=== PATIENT | female | born 1985 | race Caucasian/White ===

== ENCOUNTER 2023-10-31 09:42 | Outpatient (CLI) | payer BC, SELFPAY ==
[2023-10-31 11:57] LABS: Thyroid Stimulating Hormone 2.43 uIU/mL (0.465-4.68)
== END 2023-10-31 23:59 ==
LOC: LAB 09:43
PROVIDERS: PCP Pediatrics; Visit Provider Obstetrics & Gynecology
DX: N93.9 Abnormal uterine and vaginal bleeding, unspecified (principal)
CPT/HCPCS: 36415; 84443

== ENCOUNTER 2024-02-02 15:02 | Outpatient (CLI) | payer BC, SELFPAY ==
--- NOTE | 2024-02-02 15:03 | US_ITS ---
PROCEDURE: US TRANSVAGINAL CLINICAL INDICATION: AUB COMPARISON: No exams were available for comparison FINDINGS: Transvaginal sonographic images of the pelvis were obtained. UTERUS: 7.5 cm x 5.0 cmx 4.5 cm anteverted with a combined endometrial thickness of 5.7mm. There is a posterior submucosal fibroid measuring 1.7 cm x 1.4 cm x 2.0 cm. LEFT OVARY: 2.5 cm x1.5 cmx1.9cm with a volume of 3.7ml. There are several small follicles. RIGHT OVARY: 1.9 cmx 1.6x1.4 cm with a volume of 2.1ml. There are 2 small follicles. Both ovaries are seen and appear normal. Doppler flow to both ovaries are seen. There is no fluid in the cul-de-sac. IMPRESSION: 1. Anteverted uterus normal in shape and size. The endometrium is thin measuring 5.7 mm. 2. There is a 2.0 cm posterior submucosal fibroid. 3. Both ovaries are seen and appear normal. Each ovary has small follicles. 4. No fluid in the cul-de-sac. Dictated by: Geovani Washington MD 02/04/2024 08:53 Geovani Washington MD in OV 02/04/2024 09:02
== END 2024-02-02 23:59 | disposition home or self-care (01) ==
LOC: RAD 15:03
PROVIDERS: PCP Pediatrics; Visit Provider Obstetrics & Gynecology
DX: N93.9 Abnormal uterine and vaginal bleeding, unspecified (principal); Z80.41 Family history of malignant neoplasm of ovary; Z80.49 Family history of malignant neoplasm of other genital organs
CPT/HCPCS: 76830

== ENCOUNTER 2024-05-31 08:10 | Outpatient (CLI) | payer BC, SELFPAY ==
[2024-05-31 08:45] LABS: Basophils # 0.1 K/mm3 (0-0.2); Basophils % 1.1 % (0.1-2.0); Eosinophils # 0.3 K/mm3 (0.0-0.4); Eosinophils % 3.3 % (0.1-12.0); Hemoglobin 14.7 g/dL (12.2-16.2); Lymphocytes # 2.4 K/mm3 (0.7-4.5); Lymphocytes % 28.5 % (10-50); Mean Corpuscular Hemoglobin 28.4 pg (27.0-31.2); Mean Corpuscular Volume 81.1 fl (81-99); Mean Platelet Volume 6.9 fl (7.4-10.4); Monocytes # 0.4 K/mm3 (0.1-1.0); Monocytes % 5.1 % (1.7-9.3); Neutrophils # 5.2 K/mm3 (1.8-7.8); Neutrophils % 62.1 % (37.0-80.0); Platelet Count 427 K/mm3 (142-424); Red Blood Count 5.18 M/mm3 (4.20-5.40); Red Cell Distribution Width 13.6 % (11.5-17.5); White Blood Count 8.3 K/mm3 (4.8-10.8)
[2024-05-31 09:07] LABS: Chloride 104 mmol/L (98-107)
[2024-05-31 09:08] LABS: Albumin Level 4.6 g/dl (3.5-5.0); Potassium 4.1 mmoL/L (3.5-5.1); Sodium 137 mmol/L (136-145)
[2024-05-31 09:10] LABS: Blood Urea Nitrogen 9 mg/dl (7-17); Estimated Glomerular Filt Rate 94 ml/min (>60); GFR (African American) 114 ML/MIN (>60)
[2024-05-31 09:11] LABS: Alanine Aminotransferase 29 U/L (12-78); Albumin/Globulin Ratio 1.7 (1.1-1.8); Alkaline Phosphatase 89 U/L (38-126); Anion Gap 12.1 mEq/L (5-15); Aspartate Amino Transferase 26 U/L (14-36); Bilirubin,Total 0.5 mg/dl (0.2-1.3); Calcium 9.7 mg/dl (8.4-10.2); Carbon Dioxide 25 mmol/L (22.0-30.0); Globulin 2.7 g/dL (1.3-3.2); Glucose 115 mg/dl (74-100); Total Protein,Serum 7.3 g/dl (6.3-8.2)
[2024-05-31 09:53] LABS: HCG,Quantitative < 2 mIU/ml (0-5.42)
== END 2024-05-31 23:59 | disposition home or self-care (01) ==
PROVIDERS: PCP Pediatrics; Visit Provider Obstetrics & Gynecology
DX: N93.9 Abnormal uterine and vaginal bleeding, unspecified (principal); Z34.90 Encounter for supervision of normal pregnancy, unspecified, unspecified trimester
CPT/HCPCS: 36415; 80053; 84702; 85025; 86850

== ENCOUNTER 2024-06-01 08:48 | Observation (INO) | payer BC, SELFPAY ==
[2024-05-31 10:03] VITALS: BMI 32.2
[2024-06-01] VITALS (22 sets, daily range): BP systolic 111–156; BP diastolic 55–97; PULSE 76–116; RESP 16–19; TEMP 35.8–36.9; O2SAT 95–100
[2024-06-01] MEDS: CELECOXIB 100MG CAPSULE 400 MG PO (08:13)
[2024-06-01] MEDS: GABAPENTIN 300MG CAPSULE 600 MG (08:13)
[2024-06-01] MEDS: LACTATED RINGERS 1000ML 1,000 ML 25 ML IV (08:13)
[2024-06-01] MEDS: ACETAMINOPHEN 500MG TAB 1000 MG PO ×2 (08:14→20:36)
--- NOTE | 2024-06-01 08:26 | ECG_ITS ---
APPROVED REPORT Exam: Resting ECG HR:93 bpm ECG Measurements Heart Rate 93 AXES OH 149 P 32 QRSd 80 QRS -5 QT 333 T 32 QTc 383 Conclusion SINUS RHYTHM Left axis deviation with poor R wave progression BORDERLINE ECG UNCONFIRMED REPORT Electronically signed by : Elías Teran MD 06/02/2024 10:29:37
--- NOTE | 2024-06-01 08:29 | EXP.ANES.CKL ---
[facility] Disclaimer: The information contained in this section may have been updated after the patient was seen, as this information can be updated by other users. Medical History Mitral regurgitation Family history of uterine cancer mother Family history of ovarian cancer maternal grandmother Abnormal uterine bleeding Surgical History No significant past surgical history Family History Grandmother Cancer ovarian Mother Cancer hysterectomy due to uterine cancer Father Hypertension Diabetes Social History Smoking Status: Never smoker alcohol intake: never substance use type: denies use current occupational status: employed Travel in the last 8 weeks: None [facility] Anesthesia Checklist Patient Identification Patient Identification: Arm Band, Family and Verbal (Name & ) Structural Data Admitted From: Home Planned Operative Procedure/s: TLH, BRIANA Salp, possible JANNETTE, possible Cysto Consent for Planned Operative Procedure(s) Verified: Yes Verified Documents: Surgical Consent and History and Physical NPO Status Verified Time NPO: 19:00 Chart Verification Results Verified: CBC, BMP, ECG and HCG Additional verifications Patient : No Anesthesia Reactions: No Hx Blood Transfusions: No Blood Transfusion Reaction: No Cardiovascular Assessment Heart Sounds: S1 & S2 Pulse Rhythm: Irregular Peripheral Edema: No Airway Assessment Mallampati Score:: Class II C-Spine Mobility Assessed: Yes (FROM demonstrated) TMJ Mobility Assessed: Yes Dentition: Good Dentition (Nothing loose per pt.) Neurological Assessment Level of Consciousness: Awake, Alert, Appropriate (Tearful over procedure) and Follows Commands Hx Seizures: No Numbness or tingling in extremities: No Anesthesia Plan Anesthesia Risk discussed: Yes Anesthesia Plan: Verified ASA Class: II Anesthesia Type: General
--- NOTE | 2024-06-01 09:01 | P.HP_ITS ---
History of Present Illness *Admission Date: 06/01/24 *Reason for visit:: Scheduled surgery *History of present illness: Mrs Birgit Sargent is a 38 yo P3003 who presents to [facility] for scheduled surgery. She complains of of irregular periods with intermenstrual bleeding on combined OCP. She was taking generic RABIA. She tried a few other combined OCPs in the past as well as Mirena IUD. Other OCPs helped initially, the first few months, and then bleeding would return to abnormal. She has family history of ovarian and uterine cancer. Her mother had uterine cancer and maternal grandmother had ovarian cancer. No family history of breast cancer. TSH 10/30/22 within normal limits. She had a pelvic ultrasound a few months ago with previous provider and it was within normal limits. [facility] Disclaimer: The information contained in this section may have been updated after the patient was seen, as this information can be updated by other users. Medical History Mitral regurgitation Family history of uterine cancer mother Family history of ovarian cancer maternal grandmother Abnormal uterine bleeding Surgical History No significant past surgical history Family History Grandmother Cancer ovarian Mother Cancer hysterectomy due to uterine cancer Father Hypertension Diabetes Social History Smoking Status: Never smoker alcohol intake: never substance use type: denies use current occupational status: employed Travel in the last 8 weeks: None Other Medical History Have you received the Pneumonia Vaccine: No Review of Systems Review of Systems Review of systems:: pertinent systems reviewed and negative unless documented below *Genitourinary Genitourinary: Reports abnormal menses and Reports menorrhagia Meds Home Medications and Allergies Home Medications ?Medication ?Instructions ?Recorded ?Confirmed ?Type No Known Home Medications 06/01/24 06/01/24 History New Prescriptions to Start Prescriptions: Allergies Allergy/AdvReac Type Severity Reaction Status Date / Time nitrofurantoin (From Allergy Mild rash Verified 05/31/24 09:53 Macrobid) Exam Data for Last 24 hours Vital signs and Labs for Last 24 Hours: Temp Pulse Resp BP Pulse Ox O2 Del Method 98.5 F 110 H 18 156/85 H 100 Room Air 06/01/24 08:19 06/01/24 08:19 06/01/24 08:19 06/01/24 08:19 06/01/24 08:19 06/01/24 08:19 I & O for Last 24 hours: Intake & Output 05/29/24 05/30/24 05/31/24 06/01/24 23:59 23:59 23:59 23:59 Weight 182 lb Constitutional Constitutional: no acute distress and cooperative *Routine HEENT Exam Head: Present normocephalic and atraumatic Eye: Absent conjunctivae pink ENT: Present mucous membranes moist *Routine Neck Exam Neck: Present full ROM *Routine Respiratory Exam Respiratory: Present CTA bilaterally and normal respiratory effort *Routine Cardiovascular Exam Cardiovascular: Present RRR *Routine Abdominal Exam Abdominal: Present soft and normoactive bowel sounds; Absent tenderness or distended *Routine Rectal Exam Rectal:: deferred *Routine Genitalia Exam Genitalia:: normal female *Routine Extremities Exam Extremities: Present full ROM; Absent edema or calf tenderness *Routine Neurological Exam Neurological: Present alert, moving all extremities and normal speech Routine Psychiatric Exam Psychiatric: Present normal affect and cooperative Assessment and Plan *Assessment and plan (1) Abnormal uterine bleeding: Status: Acute Category: Medical Code(s): N93.9 - Abnormal uterine and vaginal bleeding, unspecified (2) Family history of uterine cancer: Problem Comment: mother Status: Acute Category: Medical Code(s): Z80.49 - Family history of malignant neoplasm of other genital organs (3) Family history of ovarian cancer: Problem Comment: maternal grandmother Status: Acute Category: Medical Code(s): Z80.41 - Family history of malignant neoplasm of ovary (4) Mitral regurgitation: Status: Acute Category: Medical Code(s): I34.0 - Nonrheumatic mitral (valve) insufficiency Plan Cardiac clearance obtained Reviewed risks, benefits, alternatives, expectations and possible complications. All questions addressed and answered. Consent form signed. Proceed with scheduled TLH, BS, possible JANNETTE, BS, possible cystoscopy
[2024-06-01] MEDS: BUPIVACAINE 0.5% W/EPI 1:200,000 30ML VIAL 30 ML IJ (09:53)
[2024-06-01] MEDS: CEFAZOLIN SODIUM 2 GM in 0.9 % SODIUM CHLORIDE 100 ML IV (09:53)
[2024-06-01] MEDS: METRONIDAZ/SOD CHL 500 MG/100 ML PIGGYBACK 100 MG IV ×2 (09:54→18:48)
[2024-06-01] MEDS: 0.9 % SODIUM CHLORIDE 1000ML 1,000 ML 1000 ML IV (09:54)
--- NOTE | 2024-06-01 11:21 | P.PNANES_ITS ---
[facility] Anesthesia Record Part I Anesthesia Record I Intake, IV Amount: 900 Hydration: Adequate Estimated blood loss (mL): 150 Urine output (mL): 100 Blood Products used (#): none Blood Pressure: 153/97 SaO2: 100 Pulse Rate: 107 Airway Patency: Patent Respiratory Rate: 16 Temperature: 96.4 F Patient is:: Awake (Talking) and Stable Stable to PACU at:: 11:20
[2024-06-01] MEDS: MEPERIDINE 25MG/ML 1ML SYRINGE 25 MG IV (11:25)
--- NOTE | 2024-06-01 11:25 | EXP.OP.NOTE ---
Date of procedure: 06/01/24 Pre-op Diagnosis:: 1. Abnormal uterine bleeding 2. Mitral regurgitation Post-op Diagnosis:: 1. Abnormal uterine bleeding 2. Mitral regurgitation Procedure performed:: Total laparoscopic hysterectomy, bilateral salpingectomy Surgeon:: Juliana Weiner DO Roofing Applicator(s):: Geovani Washington MD HELICOPTER OFFICER:: Lelia Suarezbhumi Anesthesia: GETA Estimated blood loss (mL): 150 Clinical Note:: Mrs Birgit Sargent is a 38 yo P3003 who presents to [facility] for scheduled surgery. She complains of of irregular periods with intermenstrual bleeding on combined OCP. She was taking generic RABIA. She tried a few other combined OCPs in the past as well as Mirena IUD. Other OCPs helped initially, the first few months, and then bleeding would return to abnormal. She has family history of ovarian and uterine cancer. Her mother had uterine cancer and maternal grandmother had ovarian cancer. No family history of breast cancer. TSH 10/30/22 within normal limits. She had a pelvic ultrasound a few months ago with previous provider and it was within normal limits. Operative findings:: 1. On bimanual exam, uterus enlarged, normal shape and midposition. No adnexal masses palpated 2. On laparoscopic exam, liver, stomach and bowel grossly normal. Uterus appeared enlarged and boggy. Bilateral fallopian tubes grossly normal. Small right ovarian cyst noted on right ovary. Left ovary grossly normal. No evidence of endometriosis. Operative note:: Discussed risks, benefits, alternatives, expectations and possible complications of surgery. All questions addressed and answered. Patient wished to proceed with surgery. Patient was wheeled back to the operating room and placed under general anesthesia without difficulty. She was placed in the dorsal lithotomy position. She was prepped and draped in normal sterile fashion. Beginning at the vagina, a ellis catheter was inserted into the bladder and draining clear urine prior to the start of the procedure. Weighted Auvuard was placed in the vaginal vault. Anterior lip of the cervix was grasped with single tooth tenaculum. Uterus sounded to 10. Rojelio dilators were used to dilate the cervix. Advincula uterine manipulator was inserted into the cervix with the colpotomy cup covering the cervix. Single tooth tenaculum was removed prior to complete placement of colpotomy cup over cervix. Uterine balloon was filled with 10cc of air. Vaginal balloon was filled with 80 cc of air. Weighted Auvard was removed. Attention was then turned to the abdomen. Skin just below the umbilicus was injected with 0.5% marcaine. A 1.5 cm infraumbilical incision was made. Veress needle was tested and inserted intrabdominally. Opening pressure was 4 mm Hg. The peritoneal cavity was insulflated to 15 mm Hg. An 11 mm blunt trocar was inserted intrabdominally. Obturator was removed and sleeve left in place. Laparoscope was inserted into the trocar sleeve. Abdomen and pelvis was viewed in its entirety. Examination of the peritoneal cavity revealed no signs of injury from entry and normal anatomic structures. See findings above. Pictures were taken. Bowel was swept cephalad with blunt probe. LLQ port site was transilluminated and injected with 0.5% marcaine. A 1.5 cm incision was made and 11 mm trocar was inserted intraabdominally under direct laparoscopic visualization. Obturator was removed and sleeve was left in place. Same procedure was performed in RLQ. Left round ligament was clamped, cauterized and cut with Ligasure Hook. Left fallopian tube was then clamped, cauterized and transected at left cornua. Transection was carried through the Broad ligament. Care was taken to slowly separate the bladder off of the lower uterine segment with sharp and blunt dissection. Same procedure was carried out on the contralateral side. Once the bladder was appropriately dissected off of the lower uterine segment. Bilateral uterine arteries were clamped, cauterized and cut using the Ligasure Hook. Transection was carried through the cardinal ligament bilaterally. Hemostasis was noted. At the level of the colpotomy cup, the vaginal vault was incised circumferentially with the Ligasure monopolar hook. The uterus and cervix was pulled into the vagina and left in the vagina to hold pneumoperitoneum. The vaginal vault was closed with the Endostitch V-Lock barbed stitch. Pelvis was irrigated. Hemostasis was noted. Left fallopian tube was grasped at fimbriated end. Ligasure Hook was used to clamp, cauterize and transect the left mesosalpinx, mesovarium. Left fallopian tube removed from the body and off of the sterile field to be sent to pathology for review. Same procedure was carried out on the contralateral side. Both ovaries left in situ. Surgicel powder was applied over bilateral pedicles and closed vaginal vault. RLQ and LLQ trocars were removed under direct laparoscopic visualization. Pneumoperitoneum was released into the atmosphere. Infraumbilical trocar was removed under direct laparoscopic visualization to ensure no herniation of bowel or omentum. Skin incisions were reapproximated with 3-0 Vicryl. Dermabond was applied over closed skin incisions. Attention was turned to the vagina. Specimen was removed from the vagina and handed off of the sterile field. Catheter was removed from the bladder. Patient was awakened from anesthesia and taken to recovery in stable condition. Condition: stable Disposition: floor Specimens:: 1. Uterus, cervix 2. Bilateral fallopian tubes Complications:: None
--- NOTE | 2024-06-01 12:07 | P.PNANES_ITS ---
[facility] Anesthesia Record Part II Anesthesia Record Part II Discharge Time: 11:45 Destination: Medical Surgical Department PACU nurse assessment reviewed?: Yes Patient Condition:: Good Anesthesia Complications:: None Swallowing reflex intact?: Yes Airway Patency: Patent Cyanosis?: No Blood Pressure: 146/81 SaO2: 99 Respiratory Rate: 18 Pulse Rate: 88 Temperature: 96.7 F Mental Status: Alert & Oriented Pain level:: 5 Nausea and/or vomitting:: None Intake, IV Amount: 900 Hydration: Adequate
[2024-06-01] MEDS: HYDROMORPHONE 2MG/ML SYRINGE 1 MG IV (12:16)
[2024-06-01] MEDS: LACTATED RINGERS 1000ML 1,000 ML 125 ML IV (12:20)
[2024-06-01] MEDS: OXYCODONE 5MG IMMEDIATE RELEASE TABLET 5 MG PO (15:35)
[2024-06-01] MEDS: SODIUM CHLORIDE 0.9% 10ML FLUSH SYRINGE 10 ML IV (17:25)
[2024-06-01] MEDS: KETOROLAC 30MG/ML VIAL 30 MG IV ×2 (17:25→23:28)
[2024-06-01] MEDS: CEFAZOLIN SODIUM 1 GM in 0.9 % SODIUM CHLORIDE 50 ML IV (17:26)
[2024-06-01] MEDS: POLYETHYLENE GLYCOL 3350 17 GM PACKET PO (23:28)
[2024-06-02] VITALS: BP 128/76; PULSE 74; RESP 18
[2024-06-02] MEDS: CEFAZOLIN SODIUM 1 GM in 0.9 % SODIUM CHLORIDE 50 ML IV (02:26)
[2024-06-02] MEDS: METRONIDAZ/SOD CHL 500 MG/100 ML PIGGYBACK 100 MG IV (03:08)
[2024-06-02] MEDS: ACETAMINOPHEN 500MG TAB 1000 MG PO (04:24)
[2024-06-02] MEDS: KETOROLAC 30MG/ML VIAL 30 MG IV (06:16)
[2024-06-02 06:48] LABS: Blood Urea Nitrogen 8 mg/dl (7-17); Calcium 8.6 mg/dl (8.4-10.2); Carbon Dioxide 21 mmol/L (22.0-30.0); Chloride 110 mmol/L (98-107); Creatinine Clearance Estimated 167 mL/min (50-200); Estimated Glomerular Filt Rate 112 ml/min (>60); GFR (African American) 136 ML/MIN (>60); Glucose 121 mg/dl (74-100); Sodium 139 mmol/L (136-145)
[2024-06-02 07:01] LABS: Basophils % 0.3 % (0.1-2.0); Eosinophils % 0.2 % (0.1-12.0); Hematocrit 35.8 % (37.0-47.0); Hemoglobin 12.4 g/dL (12.2-16.2); Lymphocytes # 2.4 K/mm3 (0.7-4.5); Lymphocytes % 15.2 % (10-50); Mean Corpuscular HGB Conc 34.5 g/dL (31.8-35.4); Mean Corpuscular Hemoglobin 28.1 pg (27.0-31.2); Mean Corpuscular Volume 81.5 fl (81-99); Mean Platelet Volume 6.9 fl (7.4-10.4); Monocytes % 6.1 % (1.7-9.3); Neutrophils # 12.2 K/mm3 (1.8-7.8); Neutrophils % 78.3 % (37.0-80.0); Platelet Count 420 K/mm3 (142-424); Red Blood Count 4.39 M/mm3 (4.20-5.40); Red Cell Distribution Width 13.5 % (11.5-17.5); White Blood Count 15.5 K/mm3 (4.8-10.8)
[2024-06-02 07:03] LABS: MANUAL DIFFERENTIAL MANUAL DIFFERENTIAL (MANUAL DIFF)
[2024-06-02 08:00] VITALS: BP 123/78; PULSE 84; RESP 18; TEMP 36.8; O2SAT 100
[2024-06-02 08:15] VITALS: O2SAT 100
--- NOTE | 2024-06-02 08:56 | P.DS_ITS ---
General Admission date:: 06/01/24 Discharge date: 06/02/24 HPI HPI HPI: POD # 1 s/p TLH, BS Feeling well. Pain controlled with medication. No vaginal bleeding. Tolerating regular diet. Voiding without difficulty and passing flatus. Denies fever/chills, chest pain and shortness of breath. No lower extremity swelling or calf pain. Ambulating well ad yu. Hospital Course Hospital Course Hospital Course: Mrs Birgit Sargent is a 38 yo P3003 who presents to [facility] for scheduled surgery. She complains of of irregular periods with intermenstrual bleeding on combined OCP. She was taking generic RABIA. She tried a few other combined OCPs in the past as well as Mirena IUD. Other OCPs helped initially, the first few months, and then bleeding would return to abnormal. She has family history of ovarian and uterine cancer. Her mother had uterine cancer and maternal grandmother had ovarian cancer. No family history of breast cancer. TSH 10/30/22 within normal limits. She had a pelvic ultrasound a few months ago with previous provider and it was within normal limits. She underwent TLH, BS on 06/01/24. She did well postoperatively. Pain controlled with medication. No vaginal bleeding. Tolerating regular diet. Voiding without difficulty and passing flatus. Denies fever/chills, chest pain and shortness of breath. No lower extremity swelling or calf pain. Ambulating well ad yu. Vital signs stable, afebrile. She was discharged home on POD # 1 with discharge instructions as well as an appointment to follow-up in 2 weeks. Exam Data for Last 24 hours Vital signs and Labs for Last 24 Hours: Temp Pulse Resp BP Pulse Ox O2 Del Method 98.3 F 84 18 123/78 100 Room Air 06/02/24 08:00 06/02/24 08:00 06/02/24 08:00 06/02/24 08:00 06/02/24 08:15 06/02/24 08:15 Laboratory Results - last 24 hr 06/02/24 06:18: WBC 15.5 H D, RBC 4.39, Hgb 12.4, Hct 35.8 L, MCV 81.5, MCH 28.1, MCHC 34.5, RDW 13.5, Plt Count 420, MPV 6.9 L, Neut % (Auto) 78.3, Lymph % (Auto) 15.2, [place] % (Auto) 6.1, Eos % (Auto) 0.2, Baso % (Auto) 0.3, Neut # (Auto) 12.2 H, Lymph # (Auto) 2.4, [place] # (Auto) 1.0, Eos # (Auto) 0.0, Baso # (Auto) 0.0, Sodium 139, Potassium 4.0, Chloride 110 H, Carbon Dioxide 21 L, Anion Gap 12.0, BUN 8, Creatinine 0.60, Estimated Creat Clear 167, Estimated GFR 112, Est GFR ( Amer) 136, Glucose 121 H, Calcium 8.6 I & O for Last 24 hours: Intake & Output 05/30/24 05/31/24 06/01/24 06/02/24 23:59 23:59 23:59 23:59 Intake Total 1800 / 1800 Output Total 600 / 600 700 / 700 Balance 1200 / 1200 -700 / -700 Weight 182 lb Constitutional Constitutional: no acute distress and cooperative *Routine HEENT Exam Head: Present normocephalic and atraumatic Eye: Absent conjunctivae pink ENT: Present mucous membranes moist *Routine Neck Exam Neck: Present full ROM *Routine Respiratory Exam Respiratory: Present CTA bilaterally and normal respiratory effort *Routine Cardiovascular Exam Cardiovascular: Present RRR *Routine Abdominal Exam Abdominal: Present soft and normoactive bowel sounds; Absent tenderness or distended Comments: Laparoscopic incisions clean/dry/intact *Routine Rectal Exam Patient deferred: visual exam *Routine Exam Patient deferred: external exam *Routine Extremities Exam Extremities: Present full ROM; Absent edema or calf tenderness *Routine Neurological Exam Neurological: Present alert, moving all extremities and normal speech Routine Psychiatric Exam Psychiatric: Present normal affect and cooperative Results Data Completed and Pending Labs on day of discharge: Labs from last 24 hours 06/02/24 06:18 WBC 15.5 H D RBC 4.39 Hgb 12.4 Hct 35.8 L MCV 81.5 MCH 28.1 MCHC 34.5 RDW 13.5 Plt Count 420 MPV 6.9 L Neut % (Auto) 78.3 Lymph % (Auto) 15.2 [place] % (Auto) 6.1 Eos % (Auto) 0.2 Baso % (Auto) 0.3 Neut # (Auto) 12.2 H Lymph # (Auto) 2.4 [place] # (Auto) 1.0 Eos # (Auto) 0.0 Baso # (Auto) 0.0 Sodium 139 Potassium 4.0 Chloride 110 H Carbon Dioxide 21 L Anion Gap 12.0 BUN 8 Creatinine 0.60 Estimated Creat Clear 167 Estimated GFR 112 Est GFR ( Amer) 136 Glucose 121 H Calcium 8.6 DS: Diagnosis Discharge Diagnosis (1) Status post laparoscopic hysterectomy: Status: Acute Code(s): Z90.710 - Acquired absence of both cervix and uterus Problem details: TLMARVEL Victoria on 06/01/24 (2) Abnormal uterine bleeding: Status: Acute Code(s): N93.9 - Abnormal uterine and vaginal bleeding, unspecified (3) Family history of uterine cancer: Status: Acute Code(s): Z80.49 - Family history of malignant neoplasm of other genital organs Problem details: mother (4) Family history of ovarian cancer: Status: Acute Code(s): Z80.41 - Family history of malignant neoplasm of ovary Problem details: maternal grandmother (5) Mitral regurgitation: Status: Acute Code(s): I34.0 - Nonrheumatic mitral (valve) insufficiency Meds Home Medications and Allergies Home Medications ?Medication ?Instructions ?Recorded ?Confirmed ?Type ibuprofen 800 mg tablet 800 mg PO Q8H PRN pain #20 tabs 06/02/24 Rx oxycodone 5 mg tablet 5 mg PO Q4HP PRN Moderate Pain 06/02/24 Rx (4-6) #20 tabs New Prescriptions to Start Prescriptions: Juliana Domínguez oxycodone Juliana Weiner Allergies Allergy/AdvReac Type Severity Reaction Status Date / Time nitrofurantoin (From Allergy Mild rash Verified 05/31/24 09:53 Macrobid) Discharge Plan Disposition Patient Disposition: Home, Self-Care Follow up Plan Follow up with: Juliana Weiner DO [Staff Physician] - 2 weeks Prescriptions/Medication Reconciliation: New oxycodone 5 mg Tablet 5 mg PO Q4HP PRN (Reason: Moderate Pain (4-6)) Qty: 20 0RF ibuprofen 800 mg tablet 800 mg PO Q8H PRN (Reason: pain) Qty: 20 0RF Problem Reconciliation Problems Reviewed?: Yes Patient Discharge Instructions ACTIVITY: Limited activity DIET: continue same diet and regular diet Additional Instructions: Additional Instructions: You had a total laparoscopic hysterectomy and bilateral saplingectomy. This means that your uterus, cervix and fallopian tubes were removed. The top of your vagina is closed with dissolvable sutures. You will follow-up in office for a postop visit at 2 weeks and at 6 weeks. At your 6-week postop appointment you will have a pelvic exam to ensure your cuff is healing well. Discharge: 1. Take 800 mg Ibuprofen every 8 hours as needed for pain. You can also take 1000 mg of Tylenol in between doses, every 6-8 hours and Oxycodone 5 mg, 1 tablet every 4-6 hours or more as needed. 2. Take Miralax twice daily for at least the first 3 days after surgery and then as needed after that Activity: - No lifting more than 10 lbs for 6 weeks. - No driving for 7 days and/or while you are taking narcotic pain medication. - You have three incisions on your abdomen that are closed with stitches and surgical glue. Wound care - You have surgical glue covering your incision. This can come off in 7-10 days. Vaseline will break down the compound and remove the glue - You have stitches under your skin which will dissolve over the next 6 weeks as your body heals - Keep your wound clean and dry, ok to wash with soap and water but pat thoroughly dry Please call the office or return to the ER if you have any of the followin. heavy vaginal bleeding 2. pain that does not respond to your narcotic pain medication 3. dizziness or lightheadedness such that you lose consciousness 4. abnormal discharge from your incisions Questions or concerns: It is my privilege to be your doctor. Please let me know if you have other questions or concerns. Juliana Weiner DO [facility] [place], [place] [address] Patient Instructions: Surgical Site Infection, DI for Vaginal Hysterectomy Print Language: Tajik Providers Primary Care Provider: Sagar Mcdaniel Admanjali Provider: Juliana Weiner Attending Provider: Juliana Weiner
[2024-06-02] MEDS: POLYETHYLENE GLYCOL 3350 17 GM PACKET PO (09:06)
[2024-06-02 10:00] LABS: Eosinophils % 1 % (0-3); Lymphocytes % 16 % (10-50); Monocytes % 3 % (2-9); Neutrophils % 80 % (42-76); Platelet Estimate Normal; RBC Morphology Normal; Total Cells Counted 100
--- NOTE | 2024-06-03 10:29 | SW/DCPLANNER ---
Spoke with patient on the phone. Patient stated that she is doing very well anfd is a little sore. Patient said she doesnt have any concerns or questions at this time and that she was aware of her follow up visits. Olinda Oliver
== END 2024-06-02 09:55 | disposition home or self-care (01) ==
LOC: OB 08:49
PROVIDERS: Admitting Provider Obstetrics & Gynecology; PCP Pediatrics; Visit Provider Obstetrics & Gynecology
PROC: (CPT 58571; principal; 2024-06-01 09:15)
DX: N93.9 Abnormal uterine and vaginal bleeding, unspecified (principal); I34.0 Nonrheumatic mitral (valve) insufficiency; Z80.49 Family history of malignant neoplasm of other genital organs; Z80.41 Family history of malignant neoplasm of ovary
CPT/HCPCS: 58571; 36415; 80048; 85007; 85025; 93005; 96374; J3490; G0378; J0690; J1100; J1171; J1885; J2175; J2250; J2405; J3010; J7030; J7120